=== PATIENT | female | born 1965 | race African-American/Black ===

== ENCOUNTER 2023-11-14 05:26 | Day surgery (SDC) | payer OTHER ==
[2023-11-11 15:46] VITALS: BMI 24.3
[2023-11-14 12:38] VITALS: TEMP 98
[2023-11-14 13:25] VITALS: BP 94/55; PULSE 63; RESP 13
== END 2023-11-14 14:00 | disposition home or self-care (01) ==
LOC: JASU-ENDO 05:26
PROVIDERS: ATTEND Student in an Organized Health Care Education/Training Program
PROC: 0DJD8ZZ Inspection of Lower Intestinal Tract, Via Natural or Artificial Opening Endoscopic (ICD-10-PCS; principal; 2023-11-14 11:30)
DX: Z12.11 Encounter for screening for malignant neoplasm of colon (principal); K63.89 Other specified diseases of intestine